=== PATIENT | male | born 1995 | race Caucasian/White ===

== ENCOUNTER 2024-03-15 20:52 | Emergency (ER) | payer OTHER ==
[~2024-03-15] VITALS: Ht 175.3 cm; Wt 97.5 kg
[2024-03-15 21:09] VITALS: BP_SYST 150; PULSE 87; RESP 18; TEMP 97.5; O2SAT 98
== END 2024-03-15 22:32 | disposition left against medical advice (07) ==
LOC: SED 20:52
DX: R51.9 Headache, unspecified (principal); Z20.822 Contact with and (suspected) exposure to COVID-19; Z53.21 Procedure and treatment not carried out due to patient leaving prior to being seen by health care provider
CPT/HCPCS: 36415